=== PATIENT | male | born 1950 | race Caucasian/White ===

== ENCOUNTER 2018-05-15 11:40 | Emergency (ER) | payer MEDICARE ==
--- NOTE | 2018-05-15 12:06 | EDM.PDOC ---
ED HPI GENERAL MEDICAL PROBLEM - General Stated Complaint: FALL RT ARM INJURY Time Seen by Provider: 05/15/18 12:05 Source of Information: Reports: Patient - History of Present Illness INITIAL COMMENTS - FREE TEXT/NARRATIVE: Patient is sent here by his primary provider at [facility], he is accompanied by his son. He was reportedly walking this morning, he had a fall while getting dressed and hit his right shoulder on the doorknob as he fell. He states that he was running and tripped over his paAzoi pants. He reportedly has a diagnosis of Parkinson's disease and is quite shaky, does not have a history of frequent falls. Patient received a 60 mg IM injection of Toradol IM at the clinic prior to being sent to Center for further evaluation. He reports that his pain is "okay". Right Shoulder Pain Score (Numeric/FACES): 7 - Related Data Allergies Allergy/AdvReac Type Severity Reaction Status Date / Time No Known Allergies Allergy Verified 05/15/18 11:58 Home Meds: Home Meds Carbidopa/Levodopa [Sinemet 25-100 mg] 1 tab PO Q4HR 09/17/13 [History] rOPINIRole [Requip XL] 8 mg PO BEDTIME 09/17/13 [History] ClonazePAM [KlonoPIN] 0.5 mg PO BEDTIME 10/16/13 [History] Celecoxib 200 mg PO DAILY 05/15/18 [History] Entacapone 200 mg PO BID 05/15/18 [History] Furosemide [Lasix] 20 mg PO DAILY 05/15/18 [History] Gabapentin [Neurontin] 300 mg PO BID 05/15/18 [History] Hydrocodone/Acetaminophen [[place] 5-325 Tablet] 1 each PO Q6HR PRN #30 tablet [Rx] Turmeric Root Extract [Turmeric Curcumin] 1,000 mg PO DAILY 05/15/18 [History] levETIRAcetam [Keppra] 1,000 mg PO BID 05/15/18 [History] Review of Systems - Review of Systems Review Of Systems: See Below Respiratory: Reports: No Symptoms Cardiovascular: Reports: No Symptoms Musculoskeletal: Reports: Joint Pain (Right shoulder pain) Skin: Reports: No Symptoms Neurological: Reports: No Symptoms ED EXAM, GENERAL - Physical Exam Exam: See Below Exam Limited By: No Limitations General Appearance: Alert, WD/WN, No Apparent Distress Respiratory/Chest: No Respiratory Distress, Lungs Clear, Normal Breath Sounds Cardiovascular: Normal Peripheral Pulses, Regular Rate, Rhythm, No Murmur Extremities: Other (No deformity noted to right upper extremity/shoulder. Diffuse tenderness. Unable to move due to pain.) Neurological: Alert, Oriented, No Motor/Sensory Deficits Psychiatric: Normal Affect Skin Exam: Warm, Dry, Intact Course - Vital Signs Last Recorded V/S: Last Vital Signs Temp 98.0 F 05/15/18 12:09 Pulse 55 L 05/15/18 12:09 Resp 16 05/15/18 12:09 BP 125/72 05/15/18 12:09 Pulse Ox 94 L 05/15/18 12:09 - Orders/Labs/Meds Orders: Active Orders 24 hr Category Date Time Status Shoulder wo Cont Rt [CT] Stat Exams 05/15/18 12:15 Taken Meds: Medications Discontinued Medications Generic Name Dose Route Start Last Admin Trade Name Freq PRN Reason Stop Dose Admin Hydrocodone Bitart/Acetaminophen 1 tab 05/15/18 12:43 05/15/18 12:47 [place] 325-5 Mg PO 05/15/18 12:44 1 tab ONETIME ONE Administration - Radiology Interpretation Free Text/Narrative:: X-ray of the right shoulder demonstrates deformity of the proximal humerus, radiologist was uncertain if this was acute or old. He did have an old right scapular fracture. - Re-Assessments/Exams Free Text/Narrative Re-Assessment/Exam: Outside x-ray reviewed, there is question if fracture is new or old. Will order a CT to further evaluate this. Patient declines further pain medication for now. 05/15/18 12:31 Patient now requesting pain medication prior to lying flat for CT. Prefers to do oral, will give [place] and wait a bit before getting CT. 05/15/18 12:44 CT demonstrates impacted surgical neck fracture with angulation. This is acute on chronic. CT images reviewed by Dr. Saez/orthopedics who does not recommend surgical intervention at this time. Patient will be kept in the sling, he will follow up with orthopedics in one week. Patient is to take ibuprofen 600 mg 3 times a day, [place] was given for breakthrough pain. He will ice his shoulder 15 minutes every 2-3 hours. He will follow-up with orthopedics, return to emergency room for any new or worsening symptoms. 05/15/18 15:19 Departure - Departure Time of Disposition: 15:02 Disposition: Home, Self-Care 01 Condition: Good Clinical Impression: Humerus surgical neck fracture Qualifiers: Encounter type: subsequent encounter Fracture type: closed Laterality: right - Discharge Information Prescriptions: Hydrocodone/Acetaminophen [[place] 5-325 Tablet] 1 each PO Q6HR PRN #30 tablet PRN Reason: Pain Instructions: Humerus Fracture Treated With Immobilization, [id number], How to Use a Sling Referrals: Verenice Montano, [employer] [Primary Care Provider] - Forms: ED Department Discharge Additional Instructions: You were evaluated in the emergency department today for a fracture of the surgical neck of your humerus. Your CT was also evaluated by Dr. Saez/orthopedics. He recommends that he stay in the sling for the next week. He would like to see your in the clinic in 7- 10 days to discuss further treatment options as this was an old fracture and a new fracture both. In the meantime, he may use ibuprofen as needed for pain, 600mg 3x daily. Hydrocodone as needed for breakthrough pain. Ice this 15 minutes every few hours. Follow-up with Dr. Saez/orthopedics or burning or worsening symptoms. - My Orders Last 24 Hours: My Active Orders 05/15/18 12:15 Shoulder wo Cont Rt [CT] Stat - Assessment/Plan Last 24 Hours: My Active Orders 05/15/18 12:15 Shoulder wo Cont Rt [CT] Stat
[2018-05-15] MEDS ORDERED: Acetaminophen/HYDROcodone 325-5 MG Tab PO ONE (12:43)
--- NOTE | 2018-05-16 07:35 | CT ---
CT right shoulder Technique: Multiple axial sections of the right shoulder were obtained. Reconstructed coronal and sagittal images were obtained. Findings: Impacted surgical neck fracture is seen. Varus angulation and mild displacement is seen. This is most likely subacute to acute in age. Slight deformity of the scapula seen compatible with old fracture. Acromioclavicular joint is somewhat narrowed. Visualized right upper ribs are intact. Impression: 1. Impacted surgical neck fracture with angulation. As mentioned above this is felt to be acute or subacute in age. 2. Other incidental findings as noted above. Diagnostic code #3 MTDD
== END 2018-05-15 14:59 | disposition home or self-care (01) ==
LOC: JD.ED 11:40
DX: S42.211A Unspecified displaced fracture of surgical neck of right humerus, initial encounter for closed fracture (principal); Z79.899 Other long term (current) drug therapy; W01.198A Fall on same level from slipping, tripping and stumbling with subsequent striking against other object, initial encounter; G20 Parkinson's disease; Z91.81 History of falling
CPT/HCPCS: 73200; 99283; A9270

== ENCOUNTER 2021-02-10 07:07 | Day surgery (SDC) | payer MEDICARE, OTHER ==
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
[2021-02-10] MEDS: Polymyxin B/Trimethoprim 10 ML Bottle EYERT SCH ×4 (07:33→09:00)
[2021-02-10] MEDS: Brimonidine 0.2% Ophth Soln 5 ML Bottle EYERT SCH ×4 (07:39→09:00)
[2021-02-10] MEDS: Phenylephrine 2.5% Ophth Soln 2 ML Bot EYERT SCH ×7 (07:41→08:34)
[2021-02-10] MEDS: Tropicamide 1% Ophth Soln 15 ML Bottle EYERT SCH ×4 (07:45→08:18)
[2021-02-10] MEDS: Tetracaine HCl/PF 0.5% 4 ML Bottle EYEBOTH SCH ×5 (07:55→08:44)
[2021-02-10] MEDS: Lidocaine 1% PF 2 ML SDV INJECT SCH ×2 (07:55→08:45)
[2021-02-10] MEDS: Cefuroxime 10 MG/ML SYRINGE EYERT SCH ×2 (07:55→08:59)
[2021-02-10] MEDS: Pilocarpine 4% Ophth Soln 15 ML Bot EYERT SCH ×2 (07:56→09:00)
--- NOTE | 2021-02-10 09:05 | PCM48HPAN ---
Post Anesthesia Note - EVALUATION WITHIN 48HRS OF ANESTHETIC Vital Signs in Normal Range: Yes Patient Participated in Evaluation: Yes Respiratory Function Stable: Yes Airway Patent: Yes Cardiovascular Function Stable: Yes Hydration Status Stable: Yes Pain Control Satisfactory: Yes Nausea and Vomiting Control Satisfactory: Yes Mental Status Recovered: Yes Vital Signs: Last Vital Signs Temp 37.1 C 02/10/21 07:20 Pulse 60 02/10/21 07:20 Resp 18 02/10/21 07:20 BP 125/66 02/10/21 07:20 Pulse Ox 98 02/10/21 07:20
== END 2021-02-10 09:11 | disposition home or self-care (01) ==
LOC: JD.SDS 07:07
PROVIDERS: ATTEND Ophthalmology
DX: H25.813 Combined forms of age-related cataract, bilateral (principal); H16.103 Unspecified superficial keratitis, bilateral; H16.223 Keratoconjunctivitis sicca, not specified as Sjogren's, bilateral; H35.373 Puckering of macula, bilateral; H02.831 Dermatochalasis of right upper eyelid; H02.834 Dermatochalasis of left upper eyelid; F32.9 Major depressive disorder, single episode, unspecified; G20 Parkinson's disease; Z98.890 Other specified postprocedural states; Z79.899 Other long term (current) drug therapy
CPT/HCPCS: 66984; J0697; C1780

== ENCOUNTER 2021-02-22 07:59 | Day surgery (SDC) | payer MEDICARE, OTHER ==
[~2021-02-22 07:59] MED LIST: Cefuroxime 10 MG/ML SYRINGE EYELF SCH; Lidocaine 1% PF 2 ML SDV INJECT SCH; Pilocarpine 4% Ophth Soln 15 ML Bot EYELF SCH
[2021-02-22] MEDS: Polymyxin B/Trimethoprim 10 ML Bottle EYELF SCH ×3 (08:12→10:20)
[2021-02-22] MEDS: Brimonidine 0.2% Ophth Soln 5 ML Bottle EYELF SCH ×3 (08:17→10:20)
[2021-02-22] MEDS: Phenylephrine 2.5% Ophth Soln 2 ML Bot EYELF SCH ×5 (08:22→10:00)
[2021-02-22] MEDS: Tropicamide 1% Ophth Soln 15 ML Bottle EYELF SCH ×4 (08:27→09:14)
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
[2021-02-22] MEDS: Tetracaine HCl/PF 0.5% 4 ML Bottle EYEBOTH SCH ×4 (09:22→10:08)
--- NOTE | 2021-02-22 10:21 | PCM48HPAN ---
Post Anesthesia Note - EVALUATION WITHIN 48HRS OF ANESTHETIC Vital Signs in Normal Range: Yes Patient Participated in Evaluation: Yes Respiratory Function Stable: Yes Airway Patent: Yes Cardiovascular Function Stable: Yes Hydration Status Stable: Yes Pain Control Satisfactory: Yes Nausea and Vomiting Control Satisfactory: Yes Mental Status Recovered: Yes Vital Signs: Last Vital Signs Temp 36.8 C 02/22/21 08:00 Pulse 54 L 02/22/21 08:00 Resp 16 02/22/21 08:00 BP 140/84 02/22/21 08:00 Pulse Ox 100 02/22/21 08:00
== END 2021-02-22 10:29 | disposition home or self-care (01) ==
LOC: JD.SDS 07:59
PROVIDERS: ATTEND Ophthalmology
DX: H25.812 Combined forms of age-related cataract, left eye (principal); G20 Parkinson's disease; H16.223 Keratoconjunctivitis sicca, not specified as Sjogren's, bilateral; F32.A Depression, unspecified; K21.9 Gastro-esophageal reflux disease without esophagitis; H35.373 Puckering of macula, bilateral; Z79.899 Other long term (current) drug therapy; Z98.890 Other specified postprocedural states; Z96.1 Presence of intraocular lens
CPT/HCPCS: 66984; J0697; C1780

== ENCOUNTER 2022-02-07 22:17 | Emergency (ER) | payer MEDICARE, BC ==
[2022-02-07] MEDS ORDERED: Acetaminophen/HYDROcodone 325-5 MG Tab PO ONE (23:38)
== END 2022-02-08 01:16 | disposition home or self-care (01) ==
LOC: JD.ED 22:17
DX: S22.42XA Multiple fractures of ribs, left side, initial encounter for closed fracture (principal); S42.115A Nondisplaced fracture of body of scapula, left shoulder, initial encounter for closed fracture; S42.035A Nondisplaced fracture of lateral end of left clavicle, initial encounter for closed fracture; W01.0XXA Fall on same level from slipping, tripping and stumbling without subsequent striking against object, initial encounter
CPT/HCPCS: 73200; 99284; A9270; 71101-26-LT; 73030-26-LT; 73060-26-LT

== ENCOUNTER 2022-03-06 09:56 | Emergency (ER) | payer MEDICARE, BC ==
[2022-03-06] MEDS ORDERED: Sodium Chloride 0.9% 10 ML Syringe FLUSH PRN (10:15)
[2022-03-06 10:53] LABS: ESTIMATED GFR 99 mL/min (>60)
== END 2022-03-06 13:51 | disposition home or self-care (01) ==
LOC: JD.ED 09:56
DX: R07.89 Other chest pain (principal); R94.31 Abnormal electrocardiogram [ECG] [EKG]
CPT/HCPCS: 36415; 71045; 80053; 83735; 84484; 85025; 85379; 85610; 93005; 99285; J3490